=== PATIENT | female | born 1990 | race African-American/Black ===

== ENCOUNTER 2019-05-14 01:58 | Emergency (ER) | payer MEDICAID, OTHER ==
[~2019-05-14] VITALS: Ht 154.9 cm; Wt 46.7 kg
[2019-05-14] MEDS ORDERED: EPINEPHrine HCL 1 MG/1 ML AMP IM ONE (03:45)
[2019-05-14] MEDS ORDERED: methylPREDNISolone SOD SUCC 125 MG/2 ML VL IM ONE (03:45)
[2019-05-14] MEDS ORDERED: diphenhdrAMINE HCL 25 MG CAP PO ONE (03:45)
[2019-05-14 04:49] VITALS: BP 127/81
== END 2019-05-14 05:17 | disposition home or self-care (01) ==
LOC: ER 01:58
DX: T78.40XA Allergy, unspecified, initial encounter (principal); X58.XXXA Exposure to other specified factors, initial encounter
CPT/HCPCS: 96372; 99283; J0171; J2930

== ENCOUNTER 2019-06-25 13:34 | Emergency (ER) | payer MEDICAID ==
[~2019-06-25] VITALS: Ht 154.9 cm; Wt 45.8 kg
[2019-06-25 13:59] VITALS: BP 109/80
== END 2019-06-25 17:08 | disposition home or self-care (01) ==
LOC: ER 13:41
DX: B37.3 Candidiasis of vulva and vagina (principal)

== ENCOUNTER 2019-09-03 21:24 | Emergency (ER) | payer MEDICAID ==
[~2019-09-03] VITALS: Ht 154.9 cm; Wt 44.9 kg
[2019-09-04] MEDS ORDERED: KETOROLAC TROMETH 60MG/2ML VIAL IM ONE (01:30)
[2019-09-04 01:38] VITALS: BP 134/87
== END 2019-09-04 02:49 | disposition home or self-care (01) ==
LOC: ER 21:26
DX: J11.1 Influenza due to unidentified influenza virus with other respiratory manifestations (principal); M79.10 Myalgia, unspecified site; Z32.02 Encounter for pregnancy test, result negative
CPT/HCPCS: 81002; 81025; 96372; 99283; J1885

== ENCOUNTER 2020-03-10 12:49 | Emergency (ER) | payer MEDICAID ==
[~2020-03-10] VITALS: Ht 154.9 cm; Wt 50.8 kg
[2020-03-10 13:07] VITALS: BP 90/52
[2020-03-10] MEDS ORDERED: LIDOCAINE 1% HCL (LOCAL ANESTH.) INJ 20ML MDV IJ ONE (16:15)
[2020-03-10] MEDS ORDERED: TETANUS-DIPTH-ACEL PERTUSSIS 0.5ML SYR Tdap IM ONE (16:15)
== END 2020-03-10 16:46 | disposition home or self-care (01) ==
LOC: ER 12:49
DX: S81.811A Laceration without foreign body, right lower leg, initial encounter (principal); W25.XXXA Contact with sharp glass, initial encounter; Y93.89 Activity, other specified; Y92.89 Other specified places as the place of occurrence of the external cause; Y99.8 Other external cause status
CPT/HCPCS: 12001; 90471; 90715; 99283; J2001

== ENCOUNTER 2020-10-11 14:13 | Emergency (ER) | payer MEDICAID ==
[~2020-10-11] VITALS: Ht 154.9 cm; Wt 47.6 kg
[2020-10-11 14:46] VITALS: BP 132/76
== END 2020-10-11 15:23 | disposition home or self-care (01) ==
LOC: ER 14:13
DX: S16.1XXA Strain of muscle, fascia and tendon at neck level, initial encounter (principal); V43.52XA Car driver injured in collision with other type car in traffic accident, initial encounter; Y93.89 Activity, other specified; Y92.488 Other paved roadways as the place of occurrence of the external cause; Y99.8 Other external cause status
CPT/HCPCS: 72040

== ENCOUNTER 2021-02-11 11:35 | Emergency (ER) | payer MEDICAID ==
[2021-02-11 12:16] VITALS: BP 137/94
[2021-02-11] MEDS ORDERED: METHOCARBAMOL 500 MG TAB PO ONE (12:30)
== END 2021-02-11 13:25 | disposition home or self-care (01) ==
LOC: ER 11:35
DX: M54.6 Pain in thoracic spine (principal); Z32.02 Encounter for pregnancy test, result negative
CPT/HCPCS: 72070; 81002; 81025

== ENCOUNTER 2021-03-02 23:44 | Emergency (ER) | payer MEDICAID ==
[~2021-03-02] VITALS: Ht 167.6 cm; Wt 52.6 kg
[2021-03-02 23:49] VITALS: BP 127/85
[2021-03-03 01:28] LABS: Urine Bacteria FEW /hpf (None Seen); Urine Blood 3+ /uL (Negative); Urine Specific Gravity 1.015 (1.001-1.035); Urine WBC 427 /hpf (0 - 5); Urine WBC Clumps PRESENT /hpf (None Seen)
== END 2021-03-03 04:09 | disposition home or self-care (01) ==
LOC: ER 23:44
DX: N39.0 Urinary tract infection, site not specified (principal); M54.5 Low back pain; Z98.890 Other specified postprocedural states
CPT/HCPCS: 81001; 81025